=== PATIENT | female | born 1980 | race Caucasian/White ===

== ENCOUNTER 2018-08-20 11:57 | Emergency (ER) | payer SELFPAY ==
[2018-08-20 12:41] LABS: ABS Basophils 0.1 10^3/ul (0-0.2); ABS Eosinophils 0.2 10^3/ul (0-0.6); ABS Lymphocytes 2.2 10^3/ul (1.0-4.8); ABS Monocytes 0.8 10^3/ul (0-0.8); ABS Neutrophils 7.1 10^3/ul (1.5-7.7); ABS Nucleated RBC 0 10^3/ul; Eosinophil % 2.2 % (0-6); Hematocrit 39 % (35-47); Hemoglobin 12.8 g/dl (12.0-16.0); Lymphocyte % 20.9 % (25-47); Mean Corpuscular HGB Conc 33 g/dl (31-36); Mean Corpuscular Hemoglobin 26 pg (27-31); Mean Corpuscular Volume 79 fL (80-97); Mean Platelet Volume 8.3 um3 (7.4-10.4); Nucleated Red Blood Cells % 0.1; Platelet Count 343 10^3/ul (150-450); Red Blood Count 4.95 10^6/ul (4.00-5.40); Red Cell Distribution Width 15 % (10.5-15); White Blood Count 10.4 10^3/ul (3.5-10.8)
[2018-08-20 12:59] LABS: EGFR Non-African American 100.8 (>60)
[2018-08-20] MEDS: Ondansetron INJ* 2 MG/ML VIAL IV ONE ×2 (13:02→13:30)
[2018-08-20] MEDS ORDERED: NS 0.9% 1000 ML* 1,000 ML IV ONE (13:13)
[2018-08-20 14:50] VITALS: BP 127/81
--- NOTE | 2018-08-20 17:41 | ED ---
GI/ HPI - HPI Summary HPI Summary: Pt. is a 37 y.o female who presents to the ER for possible narcotic withdrawal. Pt. c/o N/V/D and abd. cramps. She states she is new to the area and was taking oxycodone daily for chronic left shoulder pain. Pt. states she has a hx of "tumors" in her left shoulder. Pt. states she has been out of oxy for about two days. She has no other past medical hx. Sxs are moderate in severity. No current modifying factors. - History of Current Complaint Chief Complaint: EDNauseaVomitDiarrh Time Seen by Provider: 08/20/18 12:38 Stated Complaint: SHOULDER PAIN Hx Obtained From: Patient Pain Intensity: 4 - Allergy/Home Medications Allergies/Adverse Reactions: Allergies Allergy/AdvReac Type Severity Reaction Status Date / Time No Known Allergies Allergy Verified 08/20/18 12:06 Home Medications: Home Medications oxyCODONE SR TAB(*) [Oxycontin 20 mg (*)] 20 mg PO Q8HR 08/20/18 [History Confirmed 08/20/18] oxyCODONE TAB* [Roxycodone TAB 5 mg*] 15 mg PO Q4H PRN 08/20/18 [History Confirmed 08/20/18] PMH/Surg Hx/FS Hx/Imm Hx Previously Healthy: Yes Infectious Disease History: No Infectious Disease History: Denies: Traveled Outside the [place] in Last 30 Days - Family History Known Family History: Positive: Other - noncontributory - Social History Occupation: Unemployed Lives: With Family Alcohol Use: None Substance Use Type: Reports: None Smoking Status (MU): Current Every Day Smoker Review of Systems Constitutional: Negative Eyes: Negative ENT: Negative Cardiovascular: Negative Respiratory: Negative Positive: Abdominal Pain, Vomiting, Diarrhea, Nausea Genitourinary: Negative Musculoskeletal: Negative Neurological: Negative All Other Systems Reviewed And Are Negative: Yes Physical Exam Triage Information Reviewed: Yes Vital Signs On Initial Exam: Initial Vitals Temp Pulse Resp BP Pulse Ox 98.2 F 93 20 121/78 100 08/20/18 12:02 08/20/18 12:02 08/20/18 12:02 08/20/18 12:02 08/20/18 12:02 Vital Signs Reviewed: Yes Appearance: Positive: Well-Appearing - Pt. lying on bed in NAD> Appears comfortable. Skin: Positive: Warm, Dry Head/Face: Positive: Normal Head/Face Inspection Eyes: Positive: Normal, EOMI Neck: Positive: Supple Respiratory/Lung Sounds: Positive: Clear to Auscultation, Breath Sounds Present Cardiovascular: Positive: Normal, RRR Abdomen Description: Positive: Nontender, Soft Neurological: Positive: Normal, CN Intact II-III Psychiatric: Positive: Affect/Mood Appropriate Diagnostics - Vital Signs Vital Signs Temp Pulse Resp BP Pulse Ox 08/20/18 14:49 98.1 F 70 18 127/81 100 08/20/18 12:02 98.2 F 93 20 121/78 100 - Laboratory Lab Results: Lab Results 08/20/18 08/20/18 Range/Units 12:33 12:33 WBC 10.4 (3.5-10.8) 10^3/ul RBC 4.95 (4.00-5.40) 10^6/ul Hgb 12.8 (12.0-16.0) g/dl Hct 39 (35-47) % MCV 79 L (80-97) fL MCH 26 L (27-31) pg MCHC 33 (31-36) g/dl RDW 15 (10.5-15) % Plt Count 343 (150-450) 10^3/ul MPV 8.3 (7.4-10.4) um3 Neut % (Auto) 68.3 (38-83) % Lymph % (Auto) 20.9 L (25-47) % [place] % (Auto) 7.9 H (0-7) % Eos % (Auto) 2.2 (0-6) % Baso % (Auto) 0.7 (0-2) % Absolute Neuts (auto) 7.1 (1.5-7.7) 10^3/ul Absolute Lymphs (auto) 2.2 (1.0-4.8) 10^3/ul Absolute Monos (auto) 0.8 (0-0.8) 10^3/ul Absolute Eos (auto) 0.2 (0-0.6) 10^3/ul Absolute Basos (auto) 0.1 (0-0.2) 10^3/ul Absolute Nucleated RBC 0 10^3/ul Nucleated RBC % 0.1 Sodium 138 (135-145) mmol/L Potassium 4.3 (3.5-5.0) mmol/L Chloride 107 (101-111) mmol/L Carbon Dioxide 25 (22-32) mmol/L Anion Gap 6 (2-11) mmol/L BUN 12 (6-24) mg/dL Creatinine 0.66 (0.51-0.95) mg/dL Est GFR ( Amer) 121.9 (>60) Est GFR (Non-Af Amer) 100.8 (>60) BUN/Creatinine Ratio 18.2 (8-20) Glucose 96 (70-100) mg/dL Calcium 8.6 (8.6-10.3) mg/dL Result Diagrams: 08/20/18 12:33 08/20/18 12:33 Lab Statement: Any lab studies that have been ordered have been reviewed, and results considered in the medical decision making process. GIGU Course/Dx - Course Course Of Treatment: Pt. presenting for N/V/D and abd. cramping after stopping oxycodone two days ago. She is afebrile with normal VS. She is in no acute distress. Will check basic labs and give IV fluids and zofran. She has a benign abd. exam. Blood work is unremarkable. Pt. discussed with Dr. Silva who advises pt. could be started on suboxone and f.u at [facility] if she wishes to get off of narcotics. This was discussed with pt. but she is unsure if she wishes to stop narcotics at this time. She is feeling better after meds. WIll have her f.u with the [facility] for further tx. She was also give info for [facility]. She will return to ER if sxs change or worsen. Pt. udnerstands and agrees with plan. - Diagnoses Differential Diagnoses - Female: Colitis, Gastritis, Gastroenteritis (Viral), Gastroenteritis (Bacterial) Provider Diagnoses: Vomiting and diarrhea, Narcotic withdrawal Discharge - Sign-Out/Discharge Documenting (check all that apply): Patient Departure - Discharge Plan Condition: Good Disposition: HOME Prescriptions: Ondansetron TAB* [Zofran 4 MG Tab*] 4 mg PO Q6H PRN #12 tab PRN Reason: Nausea Patient Education Materials: Chronic Pain (ED), Opioid Withdrawal (ED) Referrals: [facility] [Outside] Additional Instructions: Call the [facility] Tylenol or Motrin for pain as directed Return to ER if symptoms change or worsen - Billing Disposition and Condition Condition: GOOD Disposition: Home
== END 2018-08-20 14:49 | disposition home or self-care (01) ==
LOC: ED 11:57
DX: R11.2 Nausea with vomiting, unspecified (principal); R19.7 Diarrhea, unspecified; F17.200 Nicotine dependence, unspecified, uncomplicated; M25.519 Pain in unspecified shoulder
CPT/HCPCS: 36415; 80048; 85025; 96361; 96374; 99282; J2405

== ENCOUNTER 2019-04-13 15:01 | Emergency (ER) | payer OTHER ==
[2019-04-13] MEDS ORDERED: Ketorolac INJ* 30 MG/ML 1 ML VIAL IV PUSH ONE (15:22)
[2019-04-13] MEDS ORDERED: Metoclopramide IV* 5 MG/ML 2 ML VIAL IV SLOW PU ONE (15:22)
--- NOTE | 2019-04-13 15:35 | ED ---
Abdominal Pain/Female - HPI Summary HPI Summary: Pt is a 38 y/o F presenting to the ED brought in by EMS with a chief complaint of sudden onset abd pain. The pain came on around 1400, is on the L flank and radiates down to her hip. She also reports nausea and vomiting, as well as dysuria and some shallow breathing with the pain. She denies fever, CP, headache , rash, calf pain, hematemesis, or dizziness. EMS gave the pt 100mcg Fentanyl, 4mg Zofran, and fluids. Her LNMP 04/02/19. A1. She has no hx of DM or autoimmune disorders. No asthma, no thyroid issues. NKDA. She has no at-home medications and does not use control d/t tubal ligation. Pt is vomiting upon arrival in the ED and her pain continues upon arrival to the ED, so she is medicated with additional zofran 4mg IV and morphine 4mg IV. Vital signs while in room: HR 87bpm, BP 93/54, and SaO2 99% on room air. - History of Current Complaint Chief Complaint: EDAbdPain Stated Complaint: ABD PAIN/VOMITING/NAUSEA PER EMS Hx Obtained From: Patient, EMS Hx Last Menstrual Period: 04/02/19 ?: No Onset/Duration: Sudden Onset, Lasting Hours Timing: Hours Severity Initially: Severe Severity Currently: Severe Pain Intensity: 10 Pain Scale Used: 0-10 Numeric Location: Discrete At: LLQ Radiates: Yes Radiates to: Flank - left Character: Sharp Aggravating Factor(s): Nothing Alleviating Factor(s): Nothing Associated Signs and Symptoms: Positive: Urinary Symptoms, Nausea, Vomiting. Negative: Fever, Chest Pain, Dizzy Allergies/Adverse Reactions: Allergies Allergy/AdvReac Type Severity Reaction Status Date / Time No Known Allergies Allergy Verified 08/20/18 12:06 PMH/Surg Hx/FS Hx/Imm Hx Previously Healthy: Yes Endocrine/Hematology History: Denies: Hx Diabetes Cardiovascular History: Denies: Hx Hypertension - Surgical History Surgical History: Yes Surgery Procedure, Year, and Place: tubal ligation Infectious Disease History: No Infectious Disease History: Denies: Traveled Outside the [place] in Last 30 Days - Family History Known Family History: Positive: Other - thyroid disease- mom Negative: Renal Disease - kidney stones - Social History Alcohol Use: None Hx Substance Use: No Substance Use Type: Reports: None Hx Tobacco Use: Yes Smoking Status (MU): Current Every Day Smoker Type: Cigarettes Review of Systems Negative: Fever Negative: Chest Pain Positive: Shortness Of Breath - with pain Positive: Abdominal Pain, Vomiting, Nausea. Negative: Other - hematemesis Positive: dysuria, other - inability to urinate Negative: Myalgia - calf pain Negative: Rash Neurological: Negative - dizziness Negative: Headache Psychological: Normal All Other Systems Reviewed And Are Negative: Yes Physical Exam - Summary Physical Exam Summary: Appearance: Well-appearing, severe pain distress, well-nourished, vomiting Skin: Warm, color reflects adequate perfusion, dry Head: Normal Head/Face inspection, atraumatic Eyes: Conjunctiva clear ENT: Normal inspection Neck: Supple, no nodes, no JVD Respiratory: Lungs clear, normal breath sounds, no respiratory distress Cardio: RRR, No murmur, pulses normal, brisk capillary refill Abdomen: Soft, tender to palpation in the LLQ, no rebound, no guarding, no masses, non-distended. No CVA tenderness. Bowel sounds: Present Musculoskeletal: Strength Intact/ROM intact, no calf tenderness, no edema. Psychological: Normal Neuro: Alert, muscle tone normal, no focal deficit Triage Information Reviewed: Yes Vital Signs On Initial Exam: Initial Vitals Temp Pulse Resp BP Pulse Ox 98.0 F 58 16 108/83 92 04/13/19 15:02 04/13/19 15:02 04/13/19 15:02 04/13/19 15:02 04/13/19 15:02 Vital Signs Reviewed: Yes Diagnostics - Vital Signs Vital Signs Temp Pulse Resp BP Pulse Ox 04/13/19 15:02 98.0 F 58 16 108/83 92 - Laboratory Result Diagrams: 04/13/19 15:43 04/13/19 15:43 Lab Statement: Any lab studies that have been ordered have been reviewed, and results considered in the medical decision making process. - Radiology Abd XR Radiology Interpretation Completed By: Radiologist Summary of Radiographic Findings: No radiographic findings of bowel obstruction , mass, or other acute abnormality. RECOMMENDATION: 1. Consider obtaining an unenhanced CT examination of the abdomen and pelvis if definitive confirmation or exclusion of an obstructing ureteral stone is required. ED physician has reviewed this report. - Ultrasound Renal Ultrasound Interpretation Completed By: Radiologist Summary of Ultrasound Findings: mild pelvicaliectasis Left kidney without urolithiasis. Re-Evaluation - Re-Evaluation First Eval Re-Evaluation Time: 15:20 Change: Unchanged Comment: Still in pain after morphine and zofran. Will give ketorolac and metoclopramide. Second Eval Re-Evaluation Time: 18:00 Change: Unchanged Comment: Urine with +RBC's and bacteria. US with pelvicaliectasis. Per Dr. Wright, will treat as urolithiasis with infection, and give antibiotics. Will give ceftriaxone. Third Eval Re-Evaluation Time: 20:00 Change: Improved Comment: Pt's symptoms are improved. Feels ready to go home. Will give one hydrocodone now to control her pain this evening. Abdominal Pain Fem Course/Dx - Course Course Of Treatment: Pt is a 38 y/o F presenting to the ED brought in by EMS with a chief complaint of sudden onset abd pain. The pain came on around 1400, is on the L flank and radiates down to her hip. She also reports nausea and 6 episodes of emesis, as well as inability to urinate and some shallow breathing with the pain. She denies fever, CP, headache, rash, calf pain, hematemesis, or dizziness. EMS gave the pt 100mcg Fentanyl, 4mg Zofran, and fluids. Her LNMP 10/09. A1. NKDA. She has no at-home medications and does not use control d/t tubal ligation. Pt is not DM. Pt's PCP was Dr. Soto, but she has not seen him since before his passing. Pt is still vomiting upon arrival in the ED. In the ED course, the pt received 30mg Toradol injection, 10mg Reglan, 4mg Morphine, and 4mg Zofran and 1 tab of hydrocodone. Her wbc count is normal. Her Potassium is 3.2, Magnesium of 1.4, AST of 10, and Amylase of 18. Her lactic acid is 3.2. Her urine shows 1+ protein, 2+ ketones, 3+ blood, 3+ RBC, present squamous epithelial cells, and 1+ bacteria. Renal US shows: Mild pelvicaliectasis of the LEFT kidney without visualized urolithiasis. On exam at 1800, the patient is well-appearing and in no pain distress. She is tender to palpation in the LLQ, without rebound, guarding, masses, or distention. Nml active bowel sounds present. I spoke with Dr. Wright about the pt's present condition. He recommended getting a KUB with an official reading, and if it is a stone larger than 1cm, he would like to see her in the morning. If it is <1cm , he just wants the patient to call the office in the morning. He also recommended abx and pain medication. KUB of abd shows: No radiographic findings of bowel obstruction, mass, or other acute abnormality. RECOMMENDATION : 1. Consider obtaining an unenhanced CT examination of the abdomen and pelvis if definitive confirmation or exclusion of an obstructing ureteral stone is required. At 20:00, pt's pain is controlled, but will give hydrocodone to help continue to control her pain tonight. The pt's dx will include LLQ pain and microscopic hematuria. She will be sent home with instructions to call Dr. Wright 's office in the morning for f/u and to take cipro 500mg po bid as directed. - Diagnoses Differential Diagnosis: Positive: Appendicitis, Ectopic , Pancreatitis , Renal Colic, Urinary Tract Infection, Other - pyelonephritis Provider Diagnoses: LLQ pain, Microscopic hematuria, Hypokalemia, Hypomagnesemia Is Visit Related: No - Provider Notifications Discussed Care Of Patient With: Ramiro Wright - Get KUB, call office in am, give antibiotics and pain medication Time Discussed With Above Provider: 18:03 Discharge - Sign-Out/Discharge Documenting (check all that apply): Patient Departure - home Patient Received Moderate/Deep Sedation with Procedure: No - Discharge Plan Condition: Stable Disposition: HOME Prescriptions: Ciprofloxacin TAB* [Cipro 500 MG TAB*] 500 mg PO BID #20 tab HYDROcodone/ACETAMIN 5-325 MG* [Reed 5-325 TAB*] 1 tab PO Q4H PRN #20 tab MDD 6 PRN Reason: Severe Pain Ondansetron ODT TAB* [Zofran 4 MG Odt TAB*] 4 mg PO Q6H PRN #20 tab.odt PRN Reason: Nausea Patient Education Materials: Ureteral Stones (ED) Forms: *Work Release Referrals: [facility] [Outside] - If Needed Ramiro Wright MD [Medical Doctor] - 3 Days Additional Instructions: Please call Dr. Wright's office in the morning to schedule a follow-up appointment. Your plain xray of your kidney did not show a kidney stone at all. We have given you a copy of your ultrasound and "KUB" plain xray. You were given morphine, zofran, reglan and hydrocodone for pain in the ER. Your next hydrocodone can be at midnight if you have pain again. You may take a zofran ( ondansetron) if you are nauseous with the hydrocodone or the ciprofloxacin. Start the ciprofloxacin antibiotic in the morning. Return to the emergency department for new or worsening symptoms. - Billing Disposition and Condition Condition: STABLE Disposition: Home - Attestation Statements Document Initiated by Peter: Yes Documenting Scribe: Chelsy Henderson Provider For Whom Peter is Documenting (Include Credential): Malina Farah MD Scribe Attestation: Chelsy Diaz, scribed for Malina Farah MD on 04/15/19 at 1926. Scribe Documentation Reviewed: Yes Provider Attestation: The documentation as recorded by the Chelsy lutz accurately reflects the service I personally performed and the decisions made by me, Malina Farah MD Status of Scribnacho Document: Viewed Consult Consult: [id number] - I spoke with Dr. Wright about the pt's present condition. He recommended getting a KUB with an official reading, and if it is a stone larger than 1cm, he would like to see her in the morning. If it is <1cm, he just wants the patient to call the office in the morning. He also recommended abx and pain medication.
[2019-04-13 15:38] LABS: Urine Appearance Clear; Urine Bacteria 1+ (Absent); Urine Bilirubin Negative (Negative); Urine Blood 3+ (Negative); Urine Color Yellow; Urine Glucose Negative (Negative); Urine Ketones 2+ (Negative); Urine Nitrite Negative (Negative); Urine Protein 1+(30 mg/dL) (Negative); Urine Red Blood Cell 3+(>10/hpf) (Absent); Urine Specific Gravity 1.021 (1.010-1.030); Urine Squamous Epithelial Cell Present (Absent); Urine Urobilinogen Negative (Negative); Urine White Blood Cell Trace(0-5/hpf) (Absent)
[2019-04-13 15:54] LABS: ABS Basophils 0.1 10^3/ul (0-0.2); ABS Lymphocytes 1.5 10^3/ul (1.0-4.8); ABS Monocytes 0.7 10^3/ul (0-0.8); ABS Neutrophils 7.3 10^3/ul (1.5-7.7); Eosinophil % 0.3 %; Hematocrit 38 % (35-47); Hemoglobin 12.5 g/dL (12.0-16.0); Lymphocyte % 15.8 %; Mean Corpuscular HGB Conc 33 g/dL (31-36); Mean Corpuscular Hemoglobin 24 pg (27-31); Mean Corpuscular Volume 75 fL (80-97); Mean Platelet Volume 8.6 fL (7.4-10.4); Platelet Count 331 10^3/uL (150-450); Red Blood Count 5.13 10^6 /uL (3.70-4.87); Red Cell Distribution Width 16 % (10-15); White Blood Count 9.6 10^3/uL (3.5-10.8)
[2019-04-13 16:04] LABS: Activated Partial Thrombo Time 31.5 seconds (26.0-38.0); INR 1.06 (0.82-1.09)
[2019-04-13 16:14] LABS: ALT 7 U/L (7-52); AST 10 U/L (13-39); Albumin 3.9 g/dL (3.2-5.2); Albumin/Globulin Ratio 1.5 (1-3); Alkaline Phosphatase 54 U/L (34-104); Amylase 18 U/L (29-103); Anion Gap 10 mmol/L (2-11); BUN/Creatinine Ratio 12.7 (8-20); Blood Urea Nitrogen 8 mg/dL (6-24); C Reactive Protein 3.35 mg/L (<8.01); CO2 Carbon Dioxide 20 mmol/L (22-32); Calcium 8.6 mg/dL (8.6-10.3); Chloride 107 mmol/L (101-111); Creatine Kinase 47 U/L (10-223); EGFR Non-African American 105.8 (>60); Globulin 2.6 g/dL (2-4); Glucose 125 mg/dL (70-100); Magnesium 1.4 mg/dL (1.9-2.7); Potassium 3.2 mmol/L (3.5-5.0); Sodium 137 mmol/L (135-145); Total Protein 6.5 g/dL (6.4-8.9)
[2019-04-13 16:20] LABS: HCG Pregnancy < 0.60 mIU/mL
[2019-04-13] MEDS ORDERED: Ondansetron INJ* 2 MG/ML VIAL IV ONE (16:47)
[2019-04-13] MEDS ORDERED: Morphine 4 MG/ML VIAL (1 ml) 4 MG/ML VIAL IV ONE (16:48)
[2019-04-13] MEDS ORDERED: cefTRIAXone(*) 1 GM in NS 0.9% 50 ML* 50 ML IVPB ONE (18:06)
[2019-04-13 19:46] VITALS: BP 110/46
[2019-04-13] MEDS ORDERED: HYDROcodone/ACETAMIN 5-325 MG* 1 TAB PO ONE (20:01)
--- NOTE | 2019-04-15 06:01 | PN ---
Progress Note - Progress Note Date of Service: 04/15/19 Note: patient urine culture grew E coli 75-100,000. patient was placed on cipro. will wait for final culture for sensitivity.
--- NOTE | 2019-04-16 06:08 | PN ---
Progress Note - Progress Note Date of Service: 04/16/19 Note: Patient placed on cipro which final culture shows is sensitive to. No further action required
== END 2019-04-13 19:45 | disposition home or self-care (01) ==
LOC: ED 15:01
DX: R10.32 Left lower quadrant pain (principal); R31.29 Other microscopic hematuria; E87.6 Hypokalemia; E83.42 Hypomagnesemia; F17.210 Nicotine dependence, cigarettes, uncomplicated
CPT/HCPCS: 36415; 74018; 76775; 80053; 81003; 81015; 82150; 82550; 83605; 83690; 83735; 83880; 84702; 85025; 85610; 85730; 86140; 87077; 87086; 87186; 96374; 96375; 99285; J0696; J1885; J2270; J2405; J2765

== ENCOUNTER 2019-05-12 19:56 | Emergency (ER) | payer OTHER ==
[2019-05-12] MEDS ORDERED: Lidocaine 2% w/ EPI 1:200,000* 20 ML VIAL ONE (21:45)
--- NOTE | 2019-05-12 21:54 | ED ---
Skin Complaint - HPI Summary HPI Summary: The pt is a 38 y/o F presenting to [facility] with a CC of an abscess on her L buttocks. She stated that it has been present since 05/10/19 but has progressively gotten worse. She also stated that she has had a fever since . She also states that she has soreness, swelling, redness and pain over the area and has a purulent center. The abscess has also had discharge. The pain is rated a 10/10 in severity. She stated no aggravating or alleviating factors. She denies any CP, SOB, N/V/D and chills. - History of Current Complaint Chief Complaint: EDRashSkinAbscess Time Seen by Provider: 05/12/19 21:22 Stated Complaint: ABSCESS PER PT Hx Obtained From: Patient Hx Last Menstrual Period: 04/02/19 Onset/Duration: Started Days Ago - 05/10/19, Still Present, Worse Since Timing: Constant Onset Severity: Severe Current Severity: Severe Pain Intensity: 10 Pain Scale Used: 0-10 Numeric Skin Location: Discrete - L buttocks Character: Swelling, Pruritus, Pain, Redness Aggravating Symptom(s): Nothing Alleviating Symptom(s): Nothing Associated Signs & Symptoms: Negative - CP, SOB, N/V/D and chills., Fever, Drainage, Tenderness - Allergy/Home Medications Allergies/Adverse Reactions: Allergies Allergy/AdvReac Type Severity Reaction Status Date / Time No Known Allergies Allergy Verified 05/12/19 20:07 PMH/Surg Hx/FS Hx/Imm Hx Previously Healthy: No Endocrine/Hematology History: Denies: Hx Diabetes Cardiovascular History: Denies: Hx Hypertension - Surgical History Surgery Procedure, Year, and Place: tubal ligation Infectious Disease History: No Infectious Disease History: Denies: Traveled Outside the [place] in Last 30 Days - Family History Known Family History: Positive: Other - thyroid disease- mom Negative: Renal Disease - kidney stones - Social History Alcohol Use: None Hx Substance Use: No Substance Use Type: Reports: None Hx Tobacco Use: Yes Smoking Status (MU): Current Every Day Smoker Review of Systems Positive: Fever. Negative: Chills Negative: Chest Pain Negative: Shortness Of Breath Negative: Vomiting, Diarrhea, Nausea Positive: Other - abscess which is red, swollen, painful, and purutis All Other Systems Reviewed And Are Negative: Yes Physical Exam - Summary Physical Exam Summary: VITAL SIGNS: Reviewed. GENERAL: Patient is a well-developed and nourished female who is lying comfortable in the stretcher. Patient is not in any acute respiratory distress. HEAD AND FACE: No signs of trauma. No ecchymosis, hematomas or skull depressions. No sinus tenderness. EYES: PERRLA, EOMI x 2, No injected conjunctiva, no nystagmus. EARS: Hearing grossly intact. Ear canals and tympanic membranes are within normal limits. MOUTH: Oropharynx within normal limits. NECK: Supple, trachea is midline, no adenopathy, no JVD, no carotid bruit, no c- spine tenderness, neck with full ROM CHEST: Symmetric, no tenderness at palpation LUNGS: Clear to auscultation bilaterally. No wheezing or crackles. CVS: Regular rate and rhythm, S1 and S2 present, no murmurs or gallops appreciated. ABDOMEN: Soft, non-tender. No signs of distention. No rebound no guarding, and no masses palpated. Bowel sounds are normal. EXTREMITIES: FROM in all major joints, no edema, no cyanosis or clubbing. NEURO: Alert and oriented x 3. No acute neurological deficits. Speech is normal and follows commands. SKIN: 2 inch in diameter with redness, tenderness, and warmness with a lesion in the center. Triage Information Reviewed: Yes Vital Signs On Initial Exam: Initial Vitals Temp Pulse Resp BP Pulse Ox 97.1 F 82 16 128/45 95 05/12/19 20:05 05/12/19 20:05 05/12/19 20:05 05/12/19 20:05 05/12/19 20:05 Vital Signs Reviewed: Yes Procedures - Incision and Drainage Left Buttocks Site: L buttocks which had a raised, swollen, 2 inch diameter abscess Anesthesia: Local, Lidocaine - 2 percent Instrument(s): Scalpel - 11 Packing: Gauze Diagnostics - Vital Signs Vital Signs Temp Pulse Resp BP Pulse Ox 05/12/19 20:05 97.1 F 82 16 128/45 95 - Laboratory Lab Statement: Any lab studies that have been ordered have been reviewed, and results considered in the medical decision making process. Course/Dx - Course Course Of Treatment: The pt is a 38 y/o F presenting to [facility] with a 2 inch abscess on her L buttocks that is red, swollen, and has been experiancing drainage. Her PE found that she had a 2 inch in diameter with redness, tenderness, and warmness with a lesion in the center. A blood sample was collected and the wound was cleaned, washed, and dressed. She had a small amount of left over pus that was drained. The incision and drainage procedure used a lidocain local anesthetic and was packed and covered with gauze after the procedure was completed. She will be discharged home with a Dx of an abscess to her L buttocks. She will be given clindamycin to take at home. She will remove the packing in 48 hours and use a warm compress over the area. She will also be instructed to follow up with [facility] [place] 2[place]3 days and to return to the ED with any new or worsening symptoms. - Differential Diagnoses - Skin Complaint Differential Diagnoses: Abscess - Diagnoses Provider Diagnoses: Gluteal abscess Discharge - Sign-Out/Discharge Documenting (check all that apply): Patient Departure - discharge Patient Received Moderate/Deep Sedation with Procedure: No - Discharge Plan Condition: Stable Disposition: HOME Prescriptions: Clindamycin Cap(NF) [Clindamycin Cap 300 mg Cap(NF)] 300 mg PO Q6H #60 cap Patient Education Materials: Abscess (ED) Referrals: [facility] [Outside] - 2 Days Additional Instructions: Please remove the packing in 48 hours and use a warm compress over the area to help with swelling and infection control. Please follow up with [facility] in 2-3 days. Take the prescribed medications as directed. - Attestation Statements Document Initiated by Scribe: Yes Documenting Scribe: Ernst Coombs Provider For Whom Scribe is Documenting (Include Credential): Chaparrita Alberto MD Scribe Attestation: Ernst Diaz, scribed for Chaparrita Alberto MD on 05/12/19 at [id number]. Status of Scribe Document: Ready
[2019-05-12] MEDS ORDERED: oxyCODONE/Acetamin 5/325 MG* TAB PO ONE (22:04)
[2019-05-12] MEDS ORDERED: Clindamycin CAP* 150 MG PO ONE (22:06)
[2019-05-12 22:36] VITALS: BP 129/71
--- NOTE | 2019-05-13 00:55 | PN ---
Progress Note - Progress Note Date of Service: 05/13/19 Note: wound culture positive for MRSA. patient placed on clindamycin. will wait for final culture for sensitivity.
== END 2019-05-12 22:35 | disposition home or self-care (01) ==
LOC: ED 19:56
DX: L02.31 Cutaneous abscess of buttock (principal); F17.210 Nicotine dependence, cigarettes, uncomplicated
CPT/HCPCS: 10060; 87070; 87077; 87186; 87205; 87640; 87641; 99282; A9270-GY

== ENCOUNTER 2019-10-16 13:37 | Emergency (ER) | payer MEDICAID ==
--- NOTE | 2019-10-16 13:59 | ED ---
Complex/Multi-Sys Presentation - HPI Summary HPI Summary: This pt is a 39 y/o female presenting to [facility] c/o nausea and vomiting x3 days. Pt reports she has been vomiting every 30 minutes. She states she has not been able to sleep well recently. She notes additional symptoms of chills, myalgia, diarrhea, abd cramping, dysuria, back pain more right than left. Denies fever or cough. Pt reports sick contacts at home, son. - History Of Current Complaint Chief Complaint: EDFluSymptoms Time Seen by Provider: 10/16/19 13:47 Hx Obtained From: Patient Onset/Duration: Lasting Days - 3, Still Present Timing: Days - 3 Severity Currently: Moderate Aggravating Factor(s): nothing Alleviating Factor(s): nothing Associated Signs And Symptoms: Positive: Nausea, Vomiting, Diarrhea, Abdominal Pain, Back Pain, Other - myalgia, dysuria, chills. Negative: Fever - Allergies/Home Medications Allergies/Adverse Reactions: Allergies Allergy/AdvReac Type Severity Reaction Status Date / Time No Known Allergies Allergy Verified 05/12/19 20:07 PMH/Surg Hx/FS Hx/Imm Hx Endocrine/Hematology History: Denies: Hx Diabetes Cardiovascular History: Denies: Hx Hypertension - Surgical History Surgical History: Yes Surgery Procedure, Year, and Place: tubal ligation. . tumor removed from left shoulder Infectious Disease History: No Infectious Disease History: Denies: Traveled Outside the [place] in Last 30 Days - Family History Known Family History: Positive: Other - thyroid disease- mom Negative: Renal Disease - kidney stones - Social History Alcohol Use: None Hx Substance Use: No Substance Use Type: Reports: None Hx Tobacco Use: Yes Smoking Status (MU): Current Every Day Smoker Review of Systems Positive: Chills. Negative: Fever Positive: Abdominal Pain, Vomiting, Diarrhea, Nausea Positive: dysuria Musculoskeletal: Other - POSITIVE: back pain Positive: Myalgia All Other Systems Reviewed And Are Negative: Yes Physical Exam - Summary Physical Exam Summary: Constitutional: Well-developed, Well-nourished, Alert. (-) Distressed Skin: Warm, Dry HENT: Normocephalic; Atraumatic Eyes: Conjunctiva normal Neck: Musculoskeletal ROM normal neck. (-) JVD, (-) Stridor Cardio: Rhythm regular, rate normal, Heart sounds normal; Intact distal pulses; Radial pulses are 2+ and symmetric. (-) Murmur Pulmonary/Chest wall: Effort normal. (-) Respiratory distress, (-) Wheezes, (-) Rales Abd: Soft, (-) tenderness, (-) Distension, (-) Guarding, (-) Rebound Musculoskeletal: (-) Edema. Right greater than left flank pain. Lymph: (-) Cervical adenopathy Neuro: Alert, Oriented x3 Psych: Mood and affect Normal Triage Information Reviewed: Yes Vital Signs On Initial Exam: Initial Vitals Temp Pulse Resp BP Pulse Ox 99.6 F 50 18 96/59 97 10/16/19 13:41 10/16/19 13:41 10/16/19 13:41 10/16/19 13:41 10/16/19 13:41 Vital Signs Reviewed: Yes Procedures - Sedation Patient Received Moderate/Deep Sedation with Procedure: No Diagnostics - Vital Signs Vital Signs Temp Pulse Resp BP Pulse Ox 10/16/19 13:41 99.6 F 50 18 96/59 97 - Laboratory Result Diagrams: 10/16/19 13:53 10/16/19 13:53 Lab Statement: Any lab studies that have been ordered have been reviewed, and results considered in the medical decision making process. Re-Evaluation - Re-Evaluation First Eval Re-Evaluation Time: 15:08 Comment: Pt is still nauseous. Will order more Zofran. Second Eval Re-Evaluation Time: 15:53 Comment: Pt is a little bit less nauseous. Third Eval Re-Evaluation Time: 17:08 Comment: Pt reports feeling better compared to when she came in. UA with 1+ LE will treat since she is symptomatic. No fever or WBC to suggest pyelo. Complex Multi-Symp Course/Dx Course Of Treatment: 39-year-old female in the past medical history presents with nausea, vomiting diarrhea and lower back pain. - physical exam well- appearing, mild right flank tenderness, abdomen soft. We'll check labs including CBC to assess for infection CMP, hCG. Urinalysis to assess for UTI. Given 2L of fluids and Zofran for nausea. - Diagnoses Provider Diagnoses: Viral syndrome, UTI (urinary tract infection) Discharge ED - Sign-Out/Discharge Documenting (check all that apply): Patient Departure - Discharge home - Discharge Plan Condition: Stable Disposition: HOME Prescriptions: Cephalexin CAP* [Keflex CAP*] 500 mg PO BID 5 Days #10 cap Ondansetron ODT TAB* [Zofran 4 MG Odt TAB*] 4 mg PO Q8H PRN 4 Days #12 tab.odt PRN Reason: Nausea/Vomiting Patient Education Materials: Urinary Tract Infection in Women (ED), Gastroenteritis (ED) Referrals: [facility] [Outside] Additional Instructions: You were seen in the emergency department for nausea, vomiting, diarrhea and urinary tract infection. Please take keflex for 5 days and zofran as needed for nausea. If any studies were not completed at the time of discharge you will be called with the relevant results. Please follow up with your primary care doctor in next 2-3 days and return to emergency department for worsening or concerning symptoms. It was a pleasure taking care of you today. - Billing Disposition and Condition Condition: STABLE Disposition: Home - Attestation Statements Document Initiated by Peter: Yes Documenting Scribe: Donna Escobar Provider For Whom Peter is Documenting (Include Credential): Jason Bwoers MD Scribe Attestation: Donna Diaz, scribed for Jason Bowers MD on 10/16/19 at 1757. Scribe Documentation Reviewed: Yes Provider Attestation: The documentation as recorded by the Donna lutz accurately reflects the service I personally performed and the decisions made by , Jason Bowers MD Status of Scribe Document: Viewed
[2019-10-16 14:17] LABS: ABS Lymphocytes 0.8 10^3/ul (1.0-4.8); ABS Monocytes 0.3 10^3/ul (0-0.8); ABS Neutrophils 7.5 10^3/ul (1.5-7.7); Hematocrit 36 % (35-47); Lymphocyte % 8.8 %; Mean Corpuscular HGB Conc 33 g/dL (31-36); Mean Corpuscular Hemoglobin 25 pg (27-31); Mean Corpuscular Volume 74 fL (80-97); Mean Platelet Volume 8.5 fL (7.4-10.4); Platelet Count 337 10^3/uL (150-450); Red Blood Count 4.88 10^6 /uL (3.70-4.87); Red Cell Distribution Width 16 % (10-15); White Blood Count 8.6 10^3/uL (3.5-10.8)
[2019-10-16 14:42] LABS: HCG Pregnancy 0.69 mIU/mL
[2019-10-16 14:44] LABS: Albumin 4.5 g/dL (3.2-5.2); Albumin/Globulin Ratio 1.7 (1-3); BUN/Creatinine Ratio 11.4 (8-20); Calcium 8.6 mg/dL (8.6-10.3); EGFR African American 112.7 (>60); EGFR Non-African American 93.2 (>60); Globulin 2.6 g/dL (2-4); Potassium 3.5 mmol/L (3.5-5.0); Total Bilirubin 0.4 mg/dL (0.2-1.0); Total Protein 7.1 g/dL (6.4-8.9)
[2019-10-16] MEDS: NS 0.9% 1000 ML** 1,000 ML IV ONE ×2 (14:44→15:37)
[2019-10-16] MEDS: Ketorolac INJ* 30 MG/ML 1 ML VIAL IV ONE (14:44)
[2019-10-16] MEDS: Ondansetron INJ* 2 MG/ML VIAL IV ONE ×2 (14:44→15:37)
[2019-10-16 17:16] LABS: Urine Appearance Cloudy; Urine Bilirubin Negative (Negative); Urine Blood 2+ (Negative); Urine Color Yellow; Urine Glucose Negative (Negative); Urine Ketones 2+ (Negative); Urine Nitrite Negative (Negative); Urine Protein Negative (Negative); Urine Specific Gravity 1.021 (1.010-1.030); Urine Urobilinogen Negative (Negative)
[2019-10-16 17:21] LABS: Urine Bacteria Absent (Absent); Urine Red Blood Cell Trace(0-2/hpf) (Absent); Urine White Blood Cell 1+(6-10/hpf) (Absent)
[2019-10-16] MEDS: cefTRIAXone(*) 1 GM in NS 0.9% 50 ML* 50 ML IVPB ONE (18:09)
[2019-10-16 18:39] VITALS: BP 115/54
--- NOTE | 2019-10-19 05:44 | ED ---
Imaging and Labs Follow Up Follow Up Type: Labs/Cultures Labs/Culture Result: Urine culture preliminary shows greater than 100,000 Escherichia coli. Patient Communication/Plan: Patient treated appropriately with Keflex. awaiting sensitivity report. Nothing further at this time. Provider Diagnoses: Viral syndrome, UTI (urinary tract infection)
--- NOTE | 2019-10-20 05:39 | ED ---
Imaging and Labs Follow Up Follow Up Type: Labs/Cultures Labs/Culture Result: Urine culture panel shows greater than 100,000 Escherichia coli with sensitivity to cephalosporins. Patient Communication/Plan: Bacteria is sensitive to cephalosporins. Patient treated appropriately with Keflex. Provider Diagnoses: Viral syndrome, UTI (urinary tract infection)
== END 2019-10-16 18:29 | disposition home or self-care (01) ==
LOC: ED 13:37
DX: B34.9 Viral infection, unspecified (principal); N39.0 Urinary tract infection, site not specified; F17.200 Nicotine dependence, unspecified, uncomplicated; Z98.51 Tubal ligation status
CPT/HCPCS: 36415; 80053; 81003; 81015; 84702; 85025; 87077; 87086; 87186; 96361; 96365; 96375; 96376; 99282; J0696; J1885; J2405

== ENCOUNTER 2019-12-19 16:57 | Emergency (ER) | payer OTHER ==
--- NOTE | 2019-12-19 20:35 | ED ---
Adult Trauma - HPI Summary HPI Summary: This patient is a 39 year old female presenting to [facility] with a chief complaint of injuries after a fall. She states she fell from a standing height on ice. She states she fell backwards onto her tailbone and right elbow. She complains of pain in these areas as well as the left side of her neck and spine. She reports numbness/tingling down her left arm. She states moving her neck back and to the right aggravates the pain. Pt denies any fever, chills, erythema of eyes, sore throat, CP, SOB, cough, abdominal pain, N/V, dysuria, hematuria, myalgia, edema, rash, or dizziness. - History of Current Complaint Chief Complaint: EDFall Stated Complaint: FALL/BACK AND NECK INJURY PER PT Time Seen by Provider: 12/19/19 20:29 Hx Obtained From: Patient Hx Last Menstrual Period: 04/02/19 Mechanism of Injury: Fall Onset/Duration: Started Days Ago Pain Intensity: 10 Pain Scale Used: 0-10 Numeric - Allergy/Home Medications Allergies/Adverse Reactions: Allergies Allergy/AdvReac Type Severity Reaction Status Date / Time No Known Allergies Allergy Verified 12/19/19 17:05 Home Medications: Home Medications Cephalexin CAP* [Keflex CAP*] 500 mg PO BID 5 Days #10 cap 10/16/19 [Rx] Cephalexin CAP* [Keflex CAP*] 500 mg PO BID 5 Days #10 cap 10/16/19 [Rx] Ondansetron ODT TAB* [Zofran 4 MG Odt TAB*] 4 mg PO Q8H PRN 4 Days #12 tab.odt 10/16/19 [Rx] Ondansetron ODT TAB* [Zofran 4 MG Odt TAB*] 4 mg PO Q8H PRN 4 Days #12 tab.odt 10/16/19 [Rx] Naproxen TAB* [Naprosyn 250 mg TAB*] 500 mg PO Q8H PRN #30 tab 12/19/19 [Rx] traMADol TAB* [Ultram*] 50 mg PO Q6HR PRN #12 tab MDD 4 12/19/19 [Rx] PMH/Surg Hx/FS Hx/Imm Hx Endocrine/Hematology History: Denies: Hx Diabetes Cardiovascular History: Denies: Hx Hypertension - Surgical History Surgery Procedure, Year, and Place: tubal ligation. . tumor removed from left shoulder Infectious Disease History: No Infectious Disease History: Denies: Traveled Outside the [place] in Last 30 Days - Family History Known Family History: Positive: Other - thyroid disease- mom Negative: Renal Disease - kidney stones - Social History Alcohol Use: None Hx Substance Use: No Substance Use Type: Reports: None Hx Tobacco Use: Yes Smoking Status (MU): Current Every Day Smoker Review of Systems Negative: Fever, Chills Negative: Erythema Negative: Sore Throat Negative: Chest Pain Negative: Shortness Of Breath, Cough Negative: Abdominal Pain, Vomiting, Nausea Negative: dysuria, hematuria Positive: Other - Left shoulder, tailbone, neck and back pain, right elbow pain. Negative: Myalgia, Edema Negative: Rash Neurological/Mental Status: Other - Neg: Dizziness Positive: Numbness All Other Systems Reviewed And Are Negative: No Physical Exam - Summary Physical Exam Summary: Constitutional: Well-developed, Well-nourished, Alert, Cooperative Skin: Warm, Dry HENT: Normocephalic; No Racoons eyes; No zuñiga's sign; No abrasion; No contusion; No hemotympanum; No maxilla facial tenderness or instability; Dentition are smooth; No dental trauma; No trismus Eyes: EOM normal, PERRL Neck: Trachea is midline. No stridor; No JVD; No step off; tenderness at trapezius distribution but also has posterior midline tenderness at C5 and at L5. Cardio: Rhythm regular, rate normal Heart sounds normal; Intact distal pulses; The pedal pulses are 2+ and symmetric. Radial pulses are 2+ and symmetric. Pulmonary/Chest wall: Effort normal; Breath sounds normal; Equal chest rise; No flail segment; No rib tenderness; No sternal tenderness Abd: Soft, Appearance normal. No distension; No tenderness; No palpable pulsatile mass; No Cullens sign; No Serrano-Turners sign Musculoskeletal: Full ROM and no tenderness at hips, ankles, shoulders, elbows and knees; No joint swelling; No vertebral body tenderness; No paraspinal tenderness; No step off or deformity of the spine; Pelvis is stable to lateral compression and rock. Tenderness at right anterolateral elbow. Neuro: Alert, Oriented x3, Strength 5/5 all extremities. : No blood at urethral meatus Psych: Mood and affect Normal tenderness at trapezius distribution but als ohas posterior midline tenderness at C5 and at L5. Triage Information Reviewed: Yes Vital Signs On Initial Exam: Initial Vitals Temp Pulse Resp BP Pulse Ox 98.2 F 75 18 123/79 99 12/19/19 16:59 12/19/19 16:59 12/19/19 16:59 12/19/19 16:59 12/19/19 16:59 Vital Signs Reviewed: Yes Procedures - Sedation Patient Received Moderate/Deep Sedation with Procedure: No Diagnostics - Vital Signs Vital Signs Temp Pulse Resp BP Pulse Ox 12/19/19 19:10 98.0 F 83 18 126/65 12/19/19 16:59 98.2 F 75 18 123/79 99 - Laboratory Lab Statement: Any lab studies that have been ordered have been reviewed, and results considered in the medical decision making process. - Radiology Elbow XR Radiology Interpretation Completed By: ED Physician Summary of Radiographic Findings: Old fracture of distal humerus, edges appear callous. Pending official radiologist report. Sacrum and Coccyx XR Radiology Interpretation Completed By: ED Physician Summary of Radiographic Findings: No fractures. Pending official radiologist report. Lumbar Spine XR Radiology Interpretation Completed By: ED Physician Summary of Radiographic Findings: No acute process. Pending official radiologist report. - CT Cervical Spine CT Interpretation Completed By: Radiologist Summary of CT Findings: No acute cervical spine fracture or other acute traumatic CT pathology. ED Provider has reviewed this report. Adult Trauma Course/Dx - Course Course Of Treatment: This patient is a 39 year old female presenting to [facility] with a chief complaint of injuries after a fall. She states she fell from a standing height on ice. She states she fell backwards onto her tailbone and right elbow. She complains of pain in these areas as well as the left side of her neck and spine. She reports numbness/tingling down her left arm. She states moving her neck back and to the right aggravates the pain. Physical exam reveals tenderness at trapezius distribution but also has posterior midline tenderness at C5 and at L5. She has tenderness at the lateral right elbow. Imaging was unremarkable for acute problems. Patient was administered hydrocodone and toradol for pain. Plan for discharge was discussed with the patient and she understands and agrees with this plan. We did discuss a possibility of small chip fracture on the distal humerus, although this looked well-corticated and the x-ray to me. Sling also given, I did not splint at this point - Diagnoses Provider Diagnoses: Cervical strain, Contusion of right elbow, Low back strain, Coccyx contusion Discharge ED - Sign-Out/Discharge Documenting (check all that apply): Patient Departure - Discharge - Discharge Plan Condition: Stable Disposition: HOME Prescriptions: Naproxen TAB* [Naprosyn 250 mg TAB*] 500 mg PO Q8H PRN #30 tab PRN Reason: Pain - Moderate To Severe traMADol TAB* [Ultram*] 50 mg PO Q6HR PRN #12 tab MDD 4 PRN Reason: Pain - Severe Patient Education Materials: Low Back Strain (ED), Contusion in Adults (ED) Forms: *Work Release Referrals: [facility] [address] [Outside] - 3 Days Shaunna Lozoya MD [Medical Doctor] - 2 Days Additional Instructions: Return to ED with new or worsening symptoms. Your imaging was essentially negative, there is a chance of a chip fracture on your distal humerus, a radiologist will over read the study in the morning, we will call you if any additional action is needed. Make sure you get a follow- up appointment with our orthopedist next week. - Billing Disposition and Condition Condition: STABLE Disposition: Home - Attestation Statements Document Initiated by Peter: Yes Documenting Scribe: Ted Huynh Provider For Whom Peter is Documenting (Include Credential): Adis Carrasquillo MD Scribe Attestation: Ted Diaz, scribed for Adis Carrasquillo MD on 12/23/19 at 1104. Scribe Documentation Reviewed: Yes Provider Attestation: The documentation as recorded by the Ted lutz accurately reflects the service I personally performed and the decisions made by me, Adis Carrasquillo MD Status of Scribe Document: Viewed
[2019-12-19] MEDS ORDERED: Ketorolac *IM* INJ* 60 MG/2 ML VIAL IM ONE (20:36)
[2019-12-19] MEDS ORDERED: HYDROcodone/ACETAMIN 5-325 MG* 1 TAB PO ONE (20:36)
[2019-12-19 22:11] VITALS: BP 137/83
== END 2019-12-19 22:10 | disposition home or self-care (01) ==
LOC: ED 16:57
DX: S30.0XXA Contusion of lower back and pelvis, initial encounter (principal); S50.01XA Contusion of right elbow, initial encounter; S16.1XXA Strain of muscle, fascia and tendon at neck level, initial encounter; S39.012A Strain of muscle, fascia and tendon of lower back, initial encounter; W00.0XXA Fall on same level due to ice and snow, initial encounter; Y92.9 Unspecified place or not applicable; F17.200 Nicotine dependence, unspecified, uncomplicated
CPT/HCPCS: 72110; 72125; 72220; 96372; 99282; J1885